=== PATIENT | female | born 1985 | race American Indian/Alaskan Native ===

== ENCOUNTER 2018-11-05 19:23 | Emergency (ER) | payer MEDICAID, OTHER, SELFPAY ==
[2018-11-05 19:41] VITALS: BP 143/92; PULSE 76; RESP 20; TEMP 36.6; O2SAT 100; BMI 30.1
--- NOTE | 2018-11-05 20:16 | ED.ABDPAIN ---
HPI - Abdominal Pain <DANA Brown - Last Filed: 11/05/18 23:28> General Chief Complaint: Abdominal Pain Stated Complaint: Abd pain for two days Time Seen by Provider: 11/05/18 20:15 Source: patient Mode of arrival: ambulatory Limitations: no limitations History of Present Illness HPI narrative: 33-year-old female with history of hypothyroidism secondary to thyroidectomy and is everyday smoker here for complaint of epigastric pain at this been going on for the last couple of days. She has had some nausea. No known vomiting. She denies any urinary symptoms. No fevers or chills. She denies any trauma to the abdomen. last p.o. intake was were she had juice earlier today and she was able to keep that down. Last meal was last night. She denies any constipation or diarrhea. She denies any other concerns or complaints at this time. Increased pain with movement of the abdomen Related Data Home Medications Medication Instructions Recorded Confirmed hydrocodone-acetaminophen [Lortab 473 ml PO #0 08/08/17 Elixir] Allergies Allergy/AdvReac Type Severity Reaction Status Date / Time ibuprofen [IBUPROFEN] Allergy Unknown Verified 11/05/18 19:47 Sulfa (Sulfonamide Allergy Unknown Verified 11/05/18 19:47 Antibiotics) [SULFA (SULFONAMIDE ANTIBIOTICS)] tramadol [TRAMADOL] AdvReac Intermediate SEVERE RASH Verified 11/05/18 19:47 Review of Systems <DANA Brown - Last Filed: 11/05/18 23:28> Eyes Denies change in vision, Denies eye discharge, Denies irritation and Denies loss of vision ENT Ears, Nose, Mouth, and Throat: Denies change in voice, Denies neck pain and Denies sore throat Cardiovascular Denies chest pain, Denies irregular heart rhythm, Denies lightheadedness, Denies palpitations, Denies dyspnea, Denies dyspnea on exertion and Denies orthopnea Respiratory Denies cough, Denies dyspnea, Denies dyspnea on exertion and Denies wheezing Gastrointestinal Gastrointestinal: Reports abdominal pain Genitourinary Denies hematuria, Denies flank pain, Denies urinary incontinence and Denies urinary urgency Musculoskeletal Denies neck pain Integumentary/Breasts Denies pruritus, Denies erythema, Denies rash and Denies wounds Neurologic Denies confusion and Denies loss of vision Psychiatric Denies anxiety, Denies confusion, Denies depression, Denies homicidal ideation and Denies suicidal ideation Endocrine Denies palpitations Hematologic/Lymphatic Denies easy bruising Allergic/Immunologic Denies wheezing Exam <DANA Brown - Last Filed: 11/05/18 23:28> Initial Vital Signs Initial Vital Signs: Vital Signs Temperature 97.8 F 11/05/18 19:41 Pulse Rate 76 18 19:41 Respiratory Rate 20 11/05/18 19:41 Blood Pressure 143/92 H 11/05/18 19:41 Pulse Oximetry 100 11/05/18 19:41 Const General: cooperative and well developed Nutritional Appearance: well nourished Orientation: alert, awake, oriented x3 and not confused HENMT Face and sinus: sinus tenderness and dry mucous membranes Mouth: oral mucosae normal and moist mucous membranes Eyes Conjunctivae: conjunctivae normal Sclera: sclerae normal Pupils: PERRL EOM: EOM intact bilaterally Chest Chest: normal inspection of the chest Resp Effort & Inspection: normal respiratory effort, able to speak in complete sentences, no respiratory distress and no use of accessory muscles Auscultation: clear to auscultation bilaterally, no rales, no rhonchi and no wheezes Cardio Rate: regular rate Rhythm: regular rhythm Heart Sounds: no click, no gallops, no murmurs and no rubs GI Inspection: non-distended Palpation: soft, no hepatosplenomegaly, No guarding, No pulsatile mass and tender ( tenderness epigastric area) Auscultation: normal bowel sounds General: bladder abnormal and No CVA tenderness Back/Spine/Pelvis Back: No CVA tenderness Cervical Spine: cervical ROM normal and No pain with cervical ROM Thoracic/Lumbar Spine: thoracic and lumbar spine normal to inspection Skin General: no rashes or lesions noted, No jaundice and No petechiae Neuro General: alert, oriented x3, gait normal and no focal motor deficits Speech: speech normal <Elvin Monson MD - Last Filed: 11/06/18 05:10> Initial Vital Signs Initial Vital Signs: Vital Signs Temperature 97.8 F 11/05/18 19:41 Pulse Rate 76 11/05/18 19:41 Respiratory Rate 20 11/05/18 19:41 Blood Pressure 143/92 H 11/05/18 19:41 Pulse Oximetry 100 12/15/18 19:41 Course <DANA Brown - Last Filed: 11/05/18 23:28> Orders Ordered: ED Orders 11/05/18 20:50 CT abdomen pelvis w con Stat 11/05/18 21:00 Complete Blood Count AUTO DIFF Stat Comprehensive Metabolic Panel Stat Lipase Stat Discontinued Medications Sodium Chloride (Normal Saline 0.9%) 1,000 mls @ 1,000 mls/hr IV BOLUS ONE Stop: 11/05/18 21:48 Last Infusion: 11/05/18 23:37 Dose: 0 mls/hr Admin: 11/05/18 21:05 Dose: 1,000 mls/hr Vital Signs - 8 hr 11/05/18 22:43 Pulse Rate 66 Respiratory Rate 14 Blood Pressure [Right Arm] 113/74 <Elvin Monson MD - Last Filed: 11/06/18 05:10> Orders Ordered: ED Orders 11/05/18 20:50 CT abdomen pelvis w con Stat 11/05/18 21:00 Complete Blood Count AUTO DIFF Stat Comprehensive Metabolic Panel Stat Lipase Stat Discontinued Medications Sodium Chloride (Normal Saline 0.9%) 1,000 mls @ 1,000 mls/hr IV BOLUS ONE Stop: 11/05/18 21:48 Last Infusion: 11/05/18 23:37 Dose: 0 mls/hr Admin: 11/05/18 21:05 Dose: 1,000 mls/hr Vital Signs - 8 hr 11/05/18 22:43 Pulse Rate 66 Respiratory Rate 14 Blood Pressure [Right Arm] 113/74 MDM - Abdominal Pain <DANA Brown - Last Filed: 11/05/18 23:28> Lab Data Result diagrams: 11/05/18 21:00 11/05/18 21:00 Lab Results 11/05/18 11/05/18 11/05/18 Range/Units 19:51 21:00 21:00 WBC 4.1 L (4.5-11.0) X10^3/uL RBC 4.75 (4.0-5.2) X10^6/uL Hgb 12.1 (12.0-16.0) g/dL Hct 35.9 L (36-46) % MCV 75.6 L (80-100) fL MCH 25.6 L (26-34) PG MCHC 33.8 (30-36) % RDW 15.2 H (11.6-14.8) % Plt Count 285 (150-400) X10^3/uL Neut % (Auto) 51.4 (50-75) % Lymph % (Auto) 36.5 (25-40) % [place] % (Auto) 7.0 (3-14) % Eos % (Auto) 4.5 H (2-4) % Baso % (Auto) 0.6 (0-2) % Neut # (Auto) 2100 (3053-3282) /uL Sodium 145 (137-145) mmol/L Potassium 3.8 (3.4-5.1) mmol/L Chloride 107 (98-107) mmol/L Carbon Dioxide 27 (22-32) mmol/L BUN 7 (7-17) mg/dL Creatinine 0.60 (0.52-1.04) mg/dL Estimated GFR > 60.0 (>60) mL/min BUN/Creatinine Ratio 11.7 (6-22) Glucose 91 (70-100) mg/dL Calcium 8.6 (8.4-10.2) mg/dL Total Bilirubin 0.3 (0.2-1.3) mg/dL AST 25 (14-36) IU/L ALT 21 (9-52) IU/L Alkaline Phosphatase 88 (38-126) U/L Total Protein 7.1 (6.3-8.2) g/dL Albumin 4.1 (3.5-5.0) g/dL Globulin 3.0 (1.7-4.1) g/dL Albumin/Globulin Ratio 1.4 (1.0-2.8) Lipase 33 (23-300) U/L Urine RBC None seen (0-5/HPF) Urine WBC 0-1/hpf (0-5/HPF) Ur Squamous Epith Cells 1-5 /hpf Amorphous Sediment 1+ Urine Bacteria Moderate (10-30) H (None) Urine Mucus 1+ H (Negative) Ur Culture Indicated? Cult not indicated Micro UA Comment Not Reportable Point of care testing: Point of Care Testing Test Results Negative Urine Dip Bedside Urine Glucose Negative Bedside Urine Bilirubin - Negative Bedside Urine Ketone - Negative Urine Specific [place] 1.020 Bedside Urine Occult Blood - Negative Bedside Urine pH 7.0 Bedside Urine Protein +/- 15 Bedside Urine Urobilinogen +/- 1mg Bedside Urine Nitrite - Negative Bedside Urine Leukocytes - Negative Esterase Imaging Data CT scan - abdomen: Radiologist's impression: [address] [address] [address] Scan Report Signed Patient: Luz Yu JMR#: [id number] : 1985Acct:[id number] Age/Sex: 33 / FDate of Service: 11/05/18 Loc: ED Accession Number: [id number] Procedure: CT abdomen pelvis w con Ordering Provider: Myles Hylton PROCEDURE: CT ABDOMEN PELVIS W CON INDICATIONS: pain epigastric area TECHNIQUE: After the administration of intravenous contrast, 5 mm thick sections acquired from the diaphragm to the symphysis. 5 mm coronal and sagittal reformats were acquired. For radiation dose reduction, the following was used: automated exposure control, adjustment of mA and/or kV according to patient size. COMPARISON: [facility], CT, ABDOMEN/PELVIS WITH CONTRAST, 03/12/2017, 11:23. Located [facility], CT, CT BRAIN WO CON, 04/29/2016, 19:49. Located Within [facility], CT, BRAIN W/O CONTRAST, 04/08/2013, 15:37. [facility], CT, ABDOMEN/PELVIS WITH CONTRAST, 03/15/2013, 2:07. FINDINGS: Image quality: Excellent. ABDOMEN: Lung bases: Lung bases are clear. Heart size is normal. There is a small hiatal hernia with postsurgical changes from either prior fundoplication or hernia reduction surgery. Solid organs: Liver is normal in size and enhancement. Gallbladder is surgically absent.. Biliary system is non dilated. Pancreas enhances normally. Spleen is normal in size and enhancement. No adrenal nodules. Kidneys demonstrate normal size and enhancement, without hydronephrosis. Peritoneum and bowel: Bowel loops demonstrate normal wall thickness and caliber. No free fluid or air. Normal appendix as seen on axial image 54 series 2. Nodes and vessels: No retroperitoneal or mesenteric adenopathy by size criteria. Aorta and inferior vena cava are normal in size. Miscellaneous: No ventral hernias. PELVIS: Genitourinary: Bladder wall thickness is normal. Miscellaneous: No inguinal hernias or adenopathy. Bones: No suspicious bony lesions. No vertebral body compression fractures. IMPRESSION: Small hiatal hernia with postsurgical changes from either prior fundoplication or hernia reduction surgery. Otherwise, no convincing CT findings to suggest an etiology for the patient's reported epigastric pain. Dictated by: Skyler Rodriguez M.D. on 11/05/2018 at 22:57 Approved by: Skyler Rodriguez M.D. on 11/05/2018 at 23:09 [facility] Narrative Medical decision making narrative: CT scan of the abdomen was obtained was negative for any acute findings. Laboratory results today were unremarkable. Urinalysis was negative for urinary tract infection. Signs and symptoms presents as a differential between viral illness and abdominal wall pain. [id number] Tylenol or Motrin as needed for any discomfort. Plenty of fluids. Follow up with primary care provider later this week. For any worsening symptoms return to the emergency room. <Elvin Monson MD - Last Filed: 11/06/18 05:10> Lab Data Lab Results 11/05/18 11/05/18 11/05/18 Range/Units 19:51 21:00 21:00 WBC 4.1 L (4.5-11.0) X10^3/uL RBC 4.75 (4.0-5.2) X10^6/uL Hgb 12.1 (12.0-16.0) g/dL Hct 35.9 L (36-46) % MCV 75.6 L (80-100) fL MCH 25.6 L (26-34) PG MCHC 33.8 (30-36) % RDW 15.2 H (11.6-14.8) % Plt Count 285 (150-400) X10^3/uL Neut % (Auto) 51.4 (50-75) % Lymph % (Auto) 36.5 (25-40) % [place] % (Auto) 7.0 (3-14) % Eos % (Auto) 4.5 H (2-4) % Baso % (Auto) 0.6 (0-2) % Neut # (Auto) 2100 (3357-5865) /uL Sodium 145 (137-145) mmol/L Potassium 3.8 (3.4-5.1) mmol/L Chloride 107 (98-107) mmol/L Carbon Dioxide 27 (22-32) mmol/L BUN 7 (7-17) mg/dL Creatinine 0.60 (0.52-1.04) mg/dL Estimated GFR > 60.0 (>60) mL/min BUN/Creatinine Ratio 11.7 (6-22) Glucose 91 (70-100) mg/dL Calcium 8.6 (8.4-10.2) mg/dL Total Bilirubin 0.3 (0.2-1.3) mg/dL AST 25 (14-36) IU/L ALT 21 (9-52) IU/L Alkaline Phosphatase 88 (38-126) U/L Total Protein 7.1 (6.3-8.2) g/dL Albumin 4.1 (3.5-5.0) g/dL Globulin 3.0 (1.7-4.1) g/dL Albumin/Globulin Ratio 1.4 (1.0-2.8) Lipase 33 (23-300) U/L Urine RBC None seen (0-5/HPF) Urine WBC 0-1/hpf (0-5/HPF) Ur Squamous Epith Cells 1-5 /hpf Amorphous Sediment 1+ Urine Bacteria Moderate (10-30) H (None) Urine Mucus 1+ H (Negative) Ur Culture Indicated? Cult not indicated Micro UA Comment Not Reportable Point of care testing: Point of Care Testing Test Results Negative Urine Dip Bedside Urine Glucose Negative Bedside Urine Bilirubin - Negative Bedside Urine Ketone - Negative Urine Specific [place] 1.020 Bedside Urine Occult Blood - Negative Bedside Urine pH 7.0 Bedside Urine Protein +/- 15 Bedside Urine Urobilinogen +/- 1mg Bedside Urine Nitrite - Negative Bedside Urine Leukocytes - Negative Esterase Discharge Plan Departure Patient Disposition: Home Clinical Impression: Abdominal pain Discharge Date/Time: 11/05/18 23:39 Interventions: ED Discharge Assessment Last Done: 11/05/18 23:38 Activity Restrictions/Additional Instructions: CT scan of the abdomen was obtained was negative for any acute findings. Laboratory results today were unremarkable. Urinalysis was negative for urinary tract infection. Signs and symptoms presents as a differential between viral illness and abdominal wall pain. [id number] Tylenol or Motrin as needed for any discomfort. Plenty of fluids. Follow up with primary care provider later this week. For any worsening symptoms return to the emergency room. Prescriptions: No Action hydrocodone-acetaminophen [Lortab Elixir] 10 MG/300 MG solution 473 ml PO Qty: 0 RF: 0 Referrals: [facility] [Provider Group] <Elvin Monson MD - Last Filed: 11/06/18 05:10> Cosign ED Attending Cossnowature Attestation: I was present in the ER at the time this patient's care. I was available for verbal consultation or to see the patient directly if requested. I agree with the assessment and treatment plan.
--- NOTE | 2018-11-05 20:50 | DI.CT.S_ITS ---
PROCEDURE: CT ABDOMEN PELVIS W CON INDICATIONS: pain epigastric area TECHNIQUE: After the administration of intravenous contrast, 5 mm thick sections acquired from the diaphragm to the symphysis. 5 mm coronal and sagittal reformats were acquired. For radiation dose reduction, the following was used: automated exposure control, adjustment of mA and/or kV according to patient size. COMPARISON: [facility], CT, ABDOMEN/PELVIS WITH CONTRAST, 03/12/2017, 11:23. [facility], CT, CT BRAIN WO CON, 04/29/2016, 19:49. [facility], CT, BRAIN W/O CONTRAST, 04/08/2013, 15:37. [facility], CT, ABDOMEN/PELVIS WITH CONTRAST, 03/15/2013, 2:07. FINDINGS: Image quality: Excellent. ABDOMEN: Lung bases: Lung bases are clear. Heart size is normal. There is a small hiatal hernia with postsurgical changes from either prior fundoplication or hernia reduction surgery. Solid organs: Liver is normal in size and enhancement. Gallbladder is surgically absent.. Biliary system is non dilated. Pancreas enhances normally. Spleen is normal in size and enhancement. No adrenal nodules. Kidneys demonstrate normal size and enhancement, without hydronephrosis. Peritoneum and bowel: Bowel loops demonstrate normal wall thickness and caliber. No free fluid or air. Normal appendix as seen on axial image 54 series 2. Nodes and vessels: No retroperitoneal or mesenteric adenopathy by size criteria. Aorta and inferior vena cava are normal in size. Miscellaneous: No ventral hernias. PELVIS: Genitourinary: Bladder wall thickness is normal. Miscellaneous: No inguinal hernias or adenopathy. Bones: No suspicious bony lesions. No vertebral body compression fractures. IMPRESSION: Small hiatal hernia with postsurgical changes from either prior fundoplication or hernia reduction surgery. Otherwise, no convincing CT findings to suggest an etiology for the patient's reported epigastric pain. Dictated by: Skyler Rodriguez M.D. on 11/05/2018 at 22:57 Approved by: Skyelr Rodriguez M.D. on 11/05/2018 at 23:09
[2018-11-05] MEDS: SODIUM CHLORIDE 0.9% 1,000 ML 1000 ML IV (21:05)
--- NOTE | 2018-11-05 21:13 | PC.NURSE ---
pt reports having bowel movements every 2 or three days as baseline. reports last bowel movement yesterday and states it was hard formed with loose liquid stool at the end of the bowel movement.
[2018-11-05 21:15] LABS: Add Manual Diff / Slide Review NO; Basophils Percent Auto 0.6 % (0-2); Eosinophils Percent Auto 4.5 % (2-4); Hematocrit 35.9 % (36-46); Hemoglobin 12.1 g/dL (12.0-16.0); Lymphocytes Percent Auto 36.5 % (25-40); Mean Corpuscular HGB Conc 33.8 % (30-36); Mean Corpuscular Hemoglobin 25.6 PG (26-34); Mean Corpuscular Volume 75.6 fL (80-100); Neutrophils Absolute Auto 2100 /uL (1500-7000); Neutrophils Percent Auto 51.4 % (50-75); Platelet Count 285 X10^3/uL (150-400); Red Blood Cell Count 4.75 X10^6/uL (4.0-5.2); Red Cell Distribution Width 15.2 % (11.6-14.8); White Blood Cell Count 4.1 X10^3/uL (4.5-11.0)
[2018-11-05 21:24] LABS: Alanine Aminotransferase 21 IU/L (9-52); Albumin 4.1 g/dL (3.5-5.0); Albumin Globulin Ratio 1.4 (1.0-2.8); Alkaline Phosphatase 88 U/L (38-126); Aspartate Aminotransferase 25 IU/L (14-36); BUN Creatinine Ratio 11.7 (6-22); Bilirubin Total 0.3 mg/dL (0.2-1.3); Blood Urea Nitrogen 7 mg/dL (7-17); Calcium 8.6 mg/dL (8.4-10.2); Carbon Dioxide 27 mmol/L (22-32); Chloride 107 mmol/L (98-107); Estimated Glomerular Filt Rate > 60.0 mL/min (>60); Glucose 91 mg/dL (70-100); HEMOLYSIS < 15 (0-50); Lipase 33 U/L (23-300); Potassium 3.8 mmol/L (3.4-5.1); Sodium 145 mmol/L (137-145); Total Protein 7.1 g/dL (6.3-8.2)
[2018-11-05 22:35] LABS: RBC Urine None Seen (0-5/HPF)
[2018-11-05 22:43] VITALS: BP 113/74; PULSE 66; RESP 14
[2018-11-05 22:44] LABS: Amorphous Sediment Urine 1+; Bacteria Urine Moderate (10-30); Mucus Urine 1+ (Negative); Squamous Epithelial Cell Urine 1-5 /HPF; WBC Urine 0-1/HPF (0-5/HPF)
[2018-11-05 22:45] LABS: Culture Indicated Urine Cult Not Indicated
== END 2018-11-05 23:39 | disposition home or self-care (01) ==
PROVIDERS: Emergency Medicine; Emergency Provider Nurse Practitioner Family
DX: R10.9 Unspecified abdominal pain (principal)
CPT/HCPCS: 36591; 74177; 80053; 81003; 81015; 81025; 83690; 85025; 96360; 96361; 99283; 99285; Q9967

== ENCOUNTER → 2023-01-01 17:11 | Outpatient (CLI) | payer MEDICAID, OTHER, SELFPAY ==
--- NOTE | 2023-01-01 | DI.US.S_ITS ---
PROCEDURE: US THYROID INDICATIONS: Nontoxic single thyroid nodule TECHNIQUE: Real-time scanning was performed of the thyroid gland, with image documentation. COMPARISON: None. FINDINGS: Prior thyroidectomy. Within the region of the palpable lump superior to the left thyroid, there is a heterogeneous focus with internal calcification that measures 1.9 x 1.1 x 1.8 cm. Moderate internal vascularity can be seen. IMPRESSION: Nodule with internal calcification is seen at the site of clinical concern that is suspicious for recurrent thyroid tissue. Please consider ultrasound-guided biopsy for further evaluation. Alternatively, a follow-up CT or nuclear medicine iodine scan could be considered for additional imaging evaluation. Dictated by: José Miguel Reaves M.D. on 01/01/2023 at 16:55 Approved by: José Miguel Reaves M.D. on 01/01/2023 at 16:57
== END ==
PROVIDERS: PCP Registered Nurse; Referring Provider Registered Nurse; Visit Provider Registered Nurse
DX: E04.1 Nontoxic single thyroid nodule (principal); E89.0 Postprocedural hypothyroidism
CPT/HCPCS: 76536